=== PATIENT | male | born 1990 | race Caucasian/White ===

== ENCOUNTER 2018-01-11 02:09 | Emergency (ER) | payer OTHER ==
[~2018-01-11] VITALS: Ht 177.8 cm; Wt 80.0 kg
[2018-01-11] MEDS ORDERED: METOCLOPRAMIDE 5 MG/ML, 2ML ONE (02:15)
[2018-01-11] MEDS ORDERED: PLEASE ENTER ALLERGIES MC SCH (02:30)
[2018-01-11] MEDS ORDERED: METOCLOPRAMIDE 5 MG/ML, 2ML IVPush ONE (02:30)
[2018-01-11 07:44] VITALS: BP 144/95
== END 2018-01-11 08:03 | disposition home or self-care (01) ==
LOC: EDBD 02:09 → ED 07:37
DX: F10.120 Alcohol abuse with intoxication, uncomplicated (principal); Z79.899 Other long term (current) drug therapy
CPT/HCPCS: 36415; 80307; 96374; 99284; J2765